=== PATIENT | male | born 1985 | race Caucasian/White ===

== ENCOUNTER 2018-10-26 17:46 | Emergency (ER) | payer SELFPAY ==
[~2018-10-26] VITALS: Ht 172.7 cm; Wt 61.2 kg
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
[2018-10-26 21:53] VITALS: BP 159/105
== END 2018-10-26 22:01 | disposition home or self-care (01) ==
LOC: ER 17:46
DX: S20.211A Contusion of right front wall of thorax, initial encounter (principal); V43.52XA Car driver injured in collision with other type car in traffic accident, initial encounter; Y92.410 Unspecified street and highway as the place of occurrence of the external cause
CPT/HCPCS: 71111; 99283